=== PATIENT | male | born 1960 | race African-American/Black ===

== ENCOUNTER 2020-04-25 08:02 | Inpatient (IN) | payer MEDICAID ==
[~2020-04-25] VITALS: Ht 172.7 cm; Wt 70.3 kg
[2020-04-25 08:07] VITALS: BP 146/85
[2020-04-25] MEDS ORDERED: NACL 0.9% 1,000 ML IV SCH (08:11)
[2020-04-25] MEDS ORDERED: ONDANSETRON 4 MG/2 ML VIAL IVP ONE (08:15)
[2020-04-25] MEDS ORDERED: PANTOPRAZOLE 40 MG INJ VIAL IVP ONE (08:15)
--- NOTE | 2020-04-25 08:15 | NUR ---
PT C/O DIFUSED ABDOMINAL PAIN WITH DARK RED STOOLS X 2 DAYS. +N/V WITH ONE EPISODE OF VOMITING YESTERDAY. GIVEN ZOFRAN 4MG IV BY EMS WHICH DECREASED NAUSEA. PT DENIES CONSTIPATION, DIRARRHEA, OR HEMATEMESIS. ABDOMEN SOFE, FLAT, AND NON TENDER TO PALPATION. PATIENT STATES PAIN OF 8/10 AT THIS TIME; VSS; PATIENT POSITIONED FOR COMFORT; HOB ELEVATED; BEDRAILS UP X1; BED DOWN. ER MD MADE AWARE OF PT STATUS.
--- NOTE | 2020-04-25 08:24 | NUR ---
QUENTIN WALKER AT BEDSIDE FOR EKG
[2020-04-25 09:00] LABS: BASOPHILS # (AUTO) 0.1 K/uL (0.00-0.22); BASOPHILS % (AUTO) 0.7 % (0.0-2.0); EOSINOPHILS # (AUTO) 0.3 K/uL (0-0.4); EOSINOPHILS % (AUTO) 3.4 % (0.0-4.0); LYMPHOCYTES # (AUTO) 1.6 K/uL (2.0-11.5); LYMPHOCYTES % (AUTO) 16.9 % (20.5-51.1); MEAN CORPUSCULAR HEMOGLOBIN 34 pg (27-31); MEAN CORPUSCULAR HGB CONC 35 g/dL (33-37); MEAN CORPUSCULAR VOLUME 97.4 fL (80-94); MONOCYTES # (AUTO) 0.4 K/uL (0.8-1.0); MONOCYTES % (AUTO) 4.7 % (1.7-9.3); NEUTROPHILS # (AUTO) 7.1 K/uL (1.8-7.7); NEUTROPHILS % (AUTO) 74.3 % (42.2-75.2); PLATELET COUNT (AUTO) 194 K/uL (140-450); RED BLOOD CELL COUNT(AUTO) 1.87 MIL/uL (4.20-6.10); RED CELL DISTRIBUTION WIDTH 13.9 % (11.6-13.7); WHITE BLOOD COUNT (AUTO) 9.6 K/uL (4.8-10.8)
[2020-04-25 09:11] LABS: HEMATOCRIT 18.2 % (36-52); HEMOGLOBIN 6.3 g/dL (12.0-18.0)
--- NOTE | 2020-04-25 09:12 | NUR ---
CRITICAL LABS: HGB: 6.3, HCT:18.2
[2020-04-25 09:17] LABS: ANION GAP 14.1 (8-16); CARBON DIOXIDE 25.3 mmol/L (21-32); CREATININE 1.8 mg/dL (0.6-1.3); POTASSIUM 3.4 mmol/L (3.5-5.1); TOTAL BILIRUBIN 0.3 mg/dL (0.0-1.0)
[2020-04-25 09:18] LABS: PROTHROMBIN TIME 9.9 secs (10.8-13.4)
--- NOTE | 2020-04-25 09:40 | NUR ---
PT AMBULATED BACK FROM BATHROOM TO BED 1 WITH STEADY GAIT. REPORTS HE HAD DARK RED STOOL. Addendum: 04/25/20 at [address] GUZMAN MADE AWARE.
[2020-04-25] MEDS ORDERED: ENAL-197 PO (09:57)
[2020-04-25] MEDS ORDERED: NIFE60TE5 PO (10:01)
[2020-04-25] MEDS ORDERED: ORE25 PO (10:01)
[2020-04-25] MEDS ORDERED: DOCUSATE SODIUM 100 MG GELCAP PO PRN (10:20)
[2020-04-25] MEDS ORDERED: ONDANSETRON 4 MG/2 ML VIAL IM/IVP PRN (10:20)
[2020-04-25] MEDS: NACL 0.9% 1,000 ML IV SCH (11:03)
[2020-04-25 11:06] LABS: MAGNESIUM 1.8 mg/dL (1.8-2.4); PHOSPHORUS 3.3 mg/dL (2.5-4.9); THYROID STIMULATING HORMONE 1.02 uIU/mL (0.34-3.74)
[2020-04-25] MEDS ORDERED: LORATADINE 10 MG TAB PO SCH (11:45)
--- NOTE | 2020-04-25 12:23 | NUR ---
PT IS RESTING IN THE BED WITH VSS SHOWS ON THE MONITOR. 1L SALINE 60 MLS/HR IS RUNNING VIA PT'S RT AC, 20G IV.
--- NOTE | 2020-04-25 13:05 | NUR ---
SIGNED BY PT BLOOD TRANSFUSION CONSENT OBTAINED AT BEDSIDE, AWAITING DR. ASKEW TO SIGN.
--- NOTE | 2020-04-25 14:01 | NUR ---
1 UNIT OF RED BLOOD CELL IS TRANSFUSING TO PT VIA RT AC, 20G.
--- NOTE | 2020-04-25 14:16 | NUR ---
PT DENIES NAUSEA, CHILLS, PAIN ON BACK, CHEST, AND LEGS. NO HIVES, RASH, ELEVATED TEMP NOTICED. PT IS RESTING IN THE BED AND ON MONITOR.
--- NOTE | 2020-04-25 15:46 | NUR ---
PT DENIES NAUSEA, CHILLS, PAIN ON BACK, CHEST, AND LEGS. NO HIVES, RASH, ELEVATED TEMP NOTICED. PT IS RESTING IN THE BED AND ON MONITOR.
--- NOTE | 2020-04-25 16:35 | NUR ---
1 UNIT RED BLOOD CELL PACK HAS BEEN COMPLETED. PT DENIES NAUSEA, CHILLS, PAIN ON BACK, CHEST, AND LEGS. NO HIVES, RASH, ELEVATED TEMP NOTICED. PT IS RESTING IN THE BED AND ON MONITOR.
--- NOTE | 2020-04-25 17:24 | NUR ---
Troponin 0.407-- critical value received from lab
--- NOTE | 2020-04-25 18:10 | NUR ---
PT STATES HE HAS BEEN STARVING ALL DAY LONG AND WANTS TO GO HOME AND GO TO [facility]. DR. CHOPRA MADE AWARE. Addendum: 04/25/20 at 1822 by KATIE EXPLAINS TO PT THAT HE HAS GI BLEEDING AND HAS TO BE ON NPO.
--- NOTE | 2020-04-25 18:15 | NUR ---
PT'S BP IS 197/127, HR 99. DR CHOPRA MADE AWARE.
--- NOTE | 2020-04-25 18:19 | NUR ---
DR. CHOPRA IS EVALUATING PT AT BEDSIDE.
--- NOTE | 2020-04-25 18:25 | NUR ---
PRESENTS WITH DR. CHOPRA TO PT AT BEDSIDE. PT IS EXTREMELY EMOTIONAL AND WANTS TO SIGN AMA FORM. ALL POSIBILITIES OF AMA EXPLAINS TO PT. PT DEMONSTATES UNDERSTANDING AND HAS SIGNED AMA.
--- NOTE | 2020-04-25 18:30 | NUR ---
HELPED PT TO CALM DOWN AND NOTIFIED PT THAT THE POSIBILITIES OF AMA WITH BP OF 196/112 AT THIS TIME.
--- NOTE | 2020-04-25 18:35 | NUR ---
PT STATES HE WANTS TO STAY AND GETS HIS BLOOD PRESSURE MEDS. DR. CHOPRA MADE AWARE.
--- NOTE | 2020-04-25 18:50 | NUR ---
SPOKE TO PT'S NEPHEW DERRELL [phone] IN THE LOBBY.
[2020-04-25] MEDS ORDERED: METOPROLOL 5 MG/5 ML VIAL IVP SCH (19:00)
--- NOTE | 2020-04-25 19:01 | NUR ---
CARDIAC DINNER PROVIDED TO PT TO BEDSIDE. PT IS EATING IN THE BED.
--- NOTE | 2020-04-25 19:10 | NUR ---
REPORT GAVE TO QUENTIN RENO. TRANSFER CARE AT THIS TIME.
--- NOTE | 2020-04-25 19:10 | NUR ---
REPORT RECEIVED FROM ZOFIA SAAVEDRA FOR CONTINUITY OF CARE.
--- NOTE | 2020-04-25 19:15 | NUR ---
PT WILL BE ADMITTED TO ROOM 106B
[2020-04-25] MEDS ORDERED: MAGNESIUM CITRATE 300 ML BTL PO ONE (19:20)
--- NOTE | 2020-04-25 19:40 | NUR ---
Patient will be admitted to care of DR CHOPRA. Admited to TELE. Will go to room 106B. Belongings list completed. Report to GINA SAAVEDRA.
[2020-04-25 19:45] VITALS: BP 169/90
--- NOTE | 2020-04-25 19:45 | NUR ---
RECEIVED PT FROM ER NURSE PT IS AAOX4 AMBULATORY ADMITTING FOR DX GI BLEED . ON TELEMETRY SR, IV ON RT AC INFUSING WELL NARES IS SWAB FOR MRSA AND TAKEN TO LAB , PT IS ORIENTED TO THE FLOOR CALL LIGHT WITHIN REACH
--- NOTE | 2020-04-25 21:00 | NUR ---
PT HAS A BM LIQUID DARK RED AND TAKEN TO LAB
[2020-04-25] MEDS ORDERED: MAGNESIUM CITRATE 300 ML BTL ONE (21:13)
[2020-04-25] MEDS: LACTULOSE 20 GM/30 ML UDC PO SCH (21:17)
[2020-04-25] MEDS: PANTOPRAZOLE 40 MG INJ VIAL IVP SCH (21:18)
[2020-04-25] MEDS: ENALAPRIL 10 MG TAB PO SCH (21:21)
--- NOTE | 2020-04-25 21:30 | NUR ---
DR GREWAL WAS NOTIFY PT BUN/CREATININE AND HE ORDER CT ABD AND PELVIS ORAL CONTRAST AND TOMORROW THEY WILL EVALUATE PT FOR IV CONTRAST
[2020-04-26] VITALS: BP 172/101
--- NOTE | 2020-04-26 | NUR ---
PT ON PREPARATION FOR CT ABD AND PELVIS WITH ORAL CONTRAST AND STILL LIQUID STOOL ON TELE ST
[2020-04-26] MEDS ORDERED: hydrALAZINE 20 MG/ML VIAL IVP PRN (00:35)
[2020-04-26] MEDS: NACL 0.9% 1,000 ML IV SCH (02:59)
[2020-04-26 04:00] VITALS: BP 146/78
--- NOTE | 2020-04-26 04:00 | NUR ---
PT HAS BEEN MONITORING CLOSE SLEEPING WELL AT THIS TIME ON TELMETRY ST IV ON RT AC INFUSING WELL
--- NOTE | 2020-04-26 04:10 | NUR ---
BLOOD PRESSURE MONITORING CLOSE STABLE AT THIS TIME 146/78
--- NOTE | 2020-04-26 07:05 | NUR ---
RECEIVED BEDSIDE REPORT REGARDING PATIENT CONDITION AND PLAN OF CARE. PATIENT IS RESTING IN BED, ASLEEP, IN NO S/S RESPIRATORY DISTRESS, DOES NOT APPEAR TO BE IN ANY PAIN. RESPIRATIONS EVEN AND UNLABORED. ALL NEEDS MET, CALL LIGHT WITHIN REACH, WILL CONTINUE TO MONITOR.
[2020-04-26 07:07] LABS: T4 (THYROXINE) 4.5 ug/dL (4.5-12.0)
[2020-04-26 08:00] VITALS: BP 151/103
[2020-04-26 08:09] LABS: FOLIC ACID 12.2 ng/mL (>3.0)
--- NOTE | 2020-04-26 08:50 | NUR ---
PATIENT HAS BEEN SCREENED AND CATEGORIZED MODERATE NUTRITION RISK. PATIENT WILL BE SEEN WITHIN 3-5 DAYS OF ADMISSION. 04/27/20 04/29/[address]
[2020-04-26] MEDS ORDERED: SENNA 8.6 MG TAB PO SCH (09:00)
[2020-04-26] MEDS ORDERED: hydroCHLOROthiazide 25 MG TAB PO SCH (09:00)
[2020-04-26] MEDS ORDERED: POLYETHYLENE GLYCOL 17 GM/PKT PO SCH (09:00)
[2020-04-26] MEDS ORDERED: NIFEdipine 60 MG TABER PO SCH (09:00)
--- NOTE | 2020-04-26 09:00 | NUR ---
PT STILL RESTING IN BED COMFORTABLY ASLEEP AND IN NO S/S RESPIRATORY DISTRESS. WILL COME BACK LATER FOR MEDICATIONS. NO NEWS YET ON PT EGD TIME.
[2020-04-26 09:04] LABS: BASOPHILS # (AUTO) 0.1 K/uL (0.00-0.22); BASOPHILS % (AUTO) 0.7 % (0.0-2.0); EOSINOPHILS # (AUTO) 0.4 K/uL (0-0.4); HEMATOCRIT 20.6 % (36-52); HEMOGLOBIN 7.1 g/dL (12.0-18.0); LYMPHOCYTES # (AUTO) 1.7 K/uL (2.0-11.5); LYMPHOCYTES % (AUTO) 19.9 % (20.5-51.1); MEAN CORPUSCULAR HEMOGLOBIN 33 pg (27-31); MEAN CORPUSCULAR HGB CONC 34 g/dL (33-37); MEAN CORPUSCULAR VOLUME 97.1 fL (80-94); MONOCYTES # (AUTO) 0.6 K/uL (0.8-1.0); MONOCYTES % (AUTO) 7.1 % (1.7-9.3); NEUTROPHILS % (AUTO) 68.3 % (42.2-75.2); PLATELET COUNT (AUTO) 201 K/uL (140-450); RED BLOOD CELL COUNT(AUTO) 2.12 MIL/uL (4.20-6.10); RED CELL DISTRIBUTION WIDTH 14.1 % (11.6-13.7); WHITE BLOOD COUNT (AUTO) 8.8 K/uL (4.8-10.8)
[2020-04-26 09:20] LABS: ANION GAP 12.3 (8-16); CARBON DIOXIDE 24.1 mmol/L (21-32); CREATININE 1.6 mg/dL (0.6-1.3); POTASSIUM 3.4 mmol/L (3.5-5.1)
[2020-04-26] MEDS: LACTULOSE 20 GM/30 ML UDC PO SCH (10:14)
[2020-04-26] MEDS: PANTOPRAZOLE 40 MG INJ VIAL IVP SCH (10:15)
[2020-04-26] MEDS: ENALAPRIL 10 MG TAB PO SCH (10:15)
--- NOTE | 2020-04-26 10:15 | NUR ---
MEDICATIONS EXPLAINED AND GIVEN TO PATIENT. PT BLOOD PRESSURE MEDICATIONS GIVEN. PT AWARE OF PROCEDURE TODAY. PT IS UPSET STATING THAT HE WANTS TO GO HOME AND COMPLAINING ABOUT THE STAFF AT [facility]. OR NURSES CAME INTO THE ROOM AND HE TOLD THE OR NURSES THAT HE DOES NOT WANT TO GO TO THE GI PROCEDURE. WILL BUD LOAIZA.
--- NOTE | 2020-04-26 10:39 | NUR ---
RN AND OR RNS WITH PATIENT EXPLAINING PROCEDURE. PT VISIBLY UPSET, RAISING VOICE, EXPRESSING HIS FRUSTRATION OVER [facility] AND DESIRE TO GO TO [facility]. REFUSES TO GO TO GI LAB FOR PROCEDURE, REFUSES TO TAKE MORNING LAXATIVES. OR RNS WILL NOTIFY
--- NOTE | 2020-04-26 11:17 | NUR ---
DC PLANN[age] YRS OLD MALE PATIENT WAS ADMITTED FROM HOME WITH A DX OF GI BLEEDING AND ANEMIA. PT HAS A HX OF HTN . HGB 6.3 STARTED IVF ,IVP PROTONIX AND 1 UNIT PRBC. CXR SHOWED NO RADIOGRAPHIC EVIDENCE OF ACUTE CARDIOPULMONARY DISEASE. CT ABD SHOWED GASTRIC WALL THICKENING. GI CONSULTED FOR POSSIBLE ENDOSCOPY OR COLONOSCOPY DC PLAN TO GO HOME WHEN STABLE CM TO FOLLOW . Y
--- NOTE | 2020-04-26 11:21 | NUR ---
PT SIGNED AGAINST MEDICAL ADVICE PAPERS EVEN AFTER TALKING TO DR CHOPRA AND DR WYNNE. ADMIN IS CURRENTLY IN ROOM SPEAKING WITH PATIENT.
--- NOTE | 2020-04-26 11:33 | NUR ---
PT LEFT FOR PROCEDURE, ALL JEWELRY ACCESSORIES BELONGINGS UNDERWEAR REMOVED. IN NO S/S RESPIRATORY DISTRESS. DENIES PAIN. ACCOMPANIED BY 2 GI LAB NURSES.
[2020-04-26] MEDS ORDERED: MIDAZOLAM 2 MG/2 ML VIAL ONE (11:41)
[2020-04-26] MEDS ORDERED: diphenhydrAMINE 50 MG/ML VIAL ONE (11:41)
[2020-04-26] MEDS ORDERED: fentaNYL citrate 0.05 MG/ML VIAL ONE (11:41)
[2020-04-26] MEDS ORDERED: FUROSEMIDE 40 MG/4 ML VIAL IVP ONE (12:32)
[2020-04-26 12:49] LABS: APPEARANCE,URINE CLEAR (CLEAR); BILIRUBIN,URINE NEGATIVE (NEGATIVE); BLOOD, URINE NEGATIVE (NEGATIVE); COLOR,URINE YELLOW (YELLOW); LEUKOCYTE ESTERASE ,URINE NEGATIVE (NEGATIVE); NITRITE, URINE NEGATIVE (NEGATIVE); UGLUCOSE NEGATIVE (NEGATIVE)
[2020-04-26] MEDS ORDERED: LACTULOSE 20 GM/30 ML UDC PO SCH (13:00)
[2020-04-26] MEDS ORDERED: NITROGLYCERIN 2% 1 GM PKT TP SCH (13:00)
[2020-04-26] MEDS ORDERED: HYDROCORTISONE SUPPOSITORY 25 MG SUPP RC SCH (13:00)
[2020-04-26] MEDS ORDERED: FUROSEMIDE 20 MG/2 ML VIAL IVP SCH (13:00)
--- NOTE | 2020-04-26 13:15 | NUR ---
PT BACK FROM PROCEDURE , VS STABLE EXCEPT FOR BP WHICH IS ELEVATED 176/117. DR MAXWELL AWARE, TOLD RN TO REFER TO ATTENDING. DR CHOPRA PAGED AND AWAITING CALL BACK.
--- NOTE | 2020-04-26 13:20 | NUR ---
FOUND PT AMBULATING TO RESTROOM, REFUSES TO GET BACK IN BED AND USE URINAL OR BED PATEL DESPITE EXPLANATION OF RISKS. PT UNSTEADY, RN PROVIDED STEADY SUPPORT. PT HAD SMALL BOWEL MOVEMENT AND URINATED IN TOILET. AMBULATED BACK TO BED SAFELY. BED ALARM ON, BED LOCKED, LOWEST POSITION. ALL NEEDS MET. CALL LIGHT WITHIN REACH.
[2020-04-26] MEDS ORDERED: METOPROLOL 5 MG/5 ML VIAL IV SCH (13:30)
--- NOTE | 2020-04-26 13:33 | NUR ---
TRIMMER HAND NOTE: SW ATTEMPTED TO COMPLETE ASSESSMENT. PATIENT WAS IN OR. Addendum: 04/26/20 at 1523 by Mroeno Velazquez [facility] Patient: Tej Bautista : 1960 Age/Sex: 59/M Unit#: [id number] Room/Bed: 106/B User: Moreno Velazquez Date: 04/26/20 15:18 Type: CM Discharge Plan Assessment Patient's Orientation Person Situation Place Time Information Provided By PATIENT Comments SW MET PATIENT AT BEDSIDE. Injection Molding Process Technician, Realtionship and Phone Number JU BAUTISTA [phone] [facility] Power of Loan Funder No Does Patient Have a POLST No Identifying Problems No Social Work Triggers Is A Social Work Consult Needed No Mandate Report Filed No Explanation Of Identifying Problems PATIENT IS A 59-YEAR-OLD FEMALE ADMITTED FOR GI BLEED AND ANEMIA. PATIENT HAS PMHX OF HYPERTENSION. Admitted From Home Pre-Admission Level Of Functioning Status Independent/Ambulatory Prior Resources/Services Used In Last 12 Months No Prior Resources Used Prior DME No Prior DME Used Living Situation Apartment Lives W/Significant Other Patient Had Caregiver No Home Support No Caregiver Issues Financial Issues No Known Financial Issue Referral To The Financial Counselor Needed No Factors/Needs No D/C Needs Identified Pt/Rep Participated In Discharge Plan Yes Patient/Family Agress With Discharge Plan Yes Discharge Plan Comments TENTATIVE DISCHARGE PLAN IS FOR PATIENT TO RETURN HOME. DC Plan Status Initiated
--- NOTE | 2020-04-26 13:41 | NUR ---
DR CHOPRA PAGED BACK GAVE ORDER FOR LOPRESSOR 5MG IVP ONCE DUE TO PT ELEVATED BLOOD PRESSURE. NOTED AND CARRIED OUT . WILL CONTINUE TO MONITOR. PT IS IN STABLE CONDITION, RESTING COMFORTABLY IN BED, CALL LIGHT WITHIN REACH.
[2020-04-26 13:54] LABS: BARBITURATE, URINE NEGATIVE ng/ml (NEG <=200)
[2020-04-26 13:55] LABS: BENZODIAZEPINE, URINE NEGATIVE ng/mL (NEG <=200); CANNABINOID, URINE POSITIVE ng/mL (NEG <=50); COCAINE, URINE POSITIVE ng/mL (NEG <=300); OPIATE, URINE NEGATIVE ng/mL (NEG <=2000); PHENCYCLIDINE SCREEN,URINE NEGATIVE ng/mL (NEG <=25)
--- NOTE | 2020-04-26 14:20 | NUR ---
PT BLOOD PRESSURE RECHECKED TO BE 127/83 , STABILIZED, DEMANDING TO GO HOME. PAGED REGARDING DISCHARGED INSTRUCTIONS. PAGED BACK AND GAVE ORDER FOR PT TO BE DISCHARGED AND TO SEE A UROLOGIST. PERSONALLY CAME AND TALKED TO PT AND GAVE PHONE NUMBER FOR DR BRICENO TO PATIENT. PT VERBALIZED UNDERSTANDING.
[2020-04-26] MEDS ORDERED: fentaNYL citrate 0.05 MG/ML VIAL IVP ONE (14:40)
[2020-04-26] MEDS ORDERED: MIDAZOLAM 2 MG/2 ML VIAL IVP ONE (14:40)
[2020-04-26] MEDS ORDERED: diphenhydrAMINE 50 MG/ML VIAL IVP ONE (14:40)
[2020-04-26 16:00] VITALS: BP 127/80
[2020-04-26 16:17] VITALS: BP 127/80
--- NOTE | 2020-04-26 16:45 | NUR ---
PATIENT LEFT FACILITY WITH ALL BELONGINGS AND COPIES OF PAPERWORK. STABLE CONDITION. DR GODDARD CAME TO SEE PT BEFORE HE LEFT AND EXPLAINED TO PATIENT ABOUT SEEING UROLOGIST DR BRICENO. PT VERBALIZED UNDERSTANDING. PT ID BANDS CUT, IV AND MANAGER ASSEMBLY REMOVED. WHEELCHAIRED TO THE FRONT AND PICKED UP BY NEPHEW IN CAR.
[2020-04-26] MEDS ORDERED: FERROUS SULFATE 325 MG TABEC PO SCH (17:00)
== END 2020-04-26 16:45 | disposition home or self-care (01) | DRG 254 ==
LOC: MED 08:02 → MTU 10:28 → UNDOADMIN 10:54 → MTU 19:40
PROVIDERS: ADMIT Family Medicine; ATTEND Family Medicine
PROC: 30233N1 Transfusion of Nonautologous Red Blood Cells into Peripheral Vein, Percutaneous Approach (ICD-10-PCS; 2020-04-25)
PROC: 0DB68ZX Excision of Stomach, Via Natural or Artificial Opening Endoscopic, Diagnostic (ICD-10-PCS; principal; 2020-04-26 11:00)
PROC: 0DJD8ZZ Inspection of Lower Intestinal Tract, Via Natural or Artificial Opening Endoscopic (ICD-10-PCS; 2020-04-26 11:00)
DX: K64.8 Other hemorrhoids (principal); I21.A1 Myocardial infarction type 2; N17.0 Acute kidney failure with tubular necrosis; E44.0 Moderate protein-calorie malnutrition; Z68.23 Body mass index [BMI] 23.0-23.9, adult; D62 Acute posthemorrhagic anemia; F41.9 Anxiety disorder, unspecified; I10 Essential (primary) hypertension; K44.9 Diaphragmatic hernia without obstruction or gangrene; K57.90 Diverticulosis of intestine, part unspecified, without perforation or abscess without bleeding; F17.210 Nicotine dependence, cigarettes, uncomplicated; K21.9 Gastro-esophageal reflux disease without esophagitis; K29.70 Gastritis, unspecified, without bleeding; Z86.011 Personal history of benign neoplasm of the brain; Z71.6 Tobacco abuse counseling
CPT/HCPCS: 36415; 36430; 71045; 76870; 80048; 80053; 80305; 81003; 82140; 82150; 82272; 82550; 82607; 82728; 82746; 83036; 83540; 83615; 83690; 83735; 83880; 84100; 84132; 84436; 84443; 84484; 85025; 85610; 85730; 86677; 86886; 86900; 86901; 86920; 87081; 96361; 96374; 96375; 99285; C9113; J0360; J1200; J1940; J2250; J2405; J3010; J3490; J7030; P9016; Q0092; Q0163